=== PATIENT | male | born 1965 | race Caucasian/White ===

== ENCOUNTER 2016-11-11 09:07 | Emergency (ER) | payer BC ==
[~2016-11-11] VITALS: Ht 182.9 cm; Wt 105.4 kg
[~2016-11-11 09:07] MED LIST: FLEXERIL10 MG PO; VICODIN 5-3001 EACH PO
[2016-11-11] MEDS ORDERED: PERCOCET 5/31 TABLET PO (10:22)
[2016-11-11] MEDS ORDERED: FLEXERIL10 MG PO (10:22)
[2016-11-11 10:29] VITALS: BP 150/105
== END 2016-11-11 10:30 | disposition home or self-care (01) ==
LOC: EME 09:07
DX: S39.012A Strain of muscle, fascia and tendon of lower back, initial encounter (principal); X58.XXXA Exposure to other specified factors, initial encounter; M62.830 Muscle spasm of back; G89.29 Other chronic pain; F17.200 Nicotine dependence, unspecified, uncomplicated
CPT/HCPCS: 99281; 99285; J1885